=== PATIENT | male | born 1965 | race Caucasian/White ===

== ENCOUNTER 2025-01-12 17:36 | Emergency (ER) | payer MEDICAID, OTHER ==
[~2025-01-12] VITALS: Ht 172.7 cm; Wt 70.0 kg
[~2025-01-12 17:36] MED LIST: ATROPINE SULFATE 1MG/10ML SYR ONE
[2025-01-12 17:41] VITALS: BP 0/0; TEMP 36.4; O2SAT 89
[2025-01-12 18:33] VITALS: PULSE 56; RESP 20; O2SAT 90
[2025-01-12] MEDS ORDERED: NOREPINEPHRINE 8MG/250ML PMX 250 ML IV ONE (18:33)
== END 2025-01-12 21:09 ==
LOC: ER 17:36
DX: I46.9 Cardiac arrest, cause unspecified (principal); I49.01 Ventricular fibrillation; Z46.82 Encounter for fitting and adjustment of non-vascular catheter; E13.69 Other specified diabetes mellitus with other specified complication
CPT/HCPCS: 36556; 82962; 86850; 86900; 86901; 86920; 36415; 31500; 99291; 99292; 93005; J0461; J3490 ×3; 36430; P9016